=== PATIENT | female | born 1970 | race Caucasian/White ===

== ENCOUNTER → 2021-04-30 | Day surgery (SDC) | payer MEDICAID ==
[~2021-04-30] VITALS: Ht 160 cm; Wt 91.6 kg
[~2021-04-30] MED LIST: BALANCED SALT IRRIG SOLN 15ML ONE; BUPIVACAINE HCL/PF 0.75% (7.5MG/ML) 10ML ONE; CALC-1042 PO; CIPROFLOXACIN 0.3% OPHTH SOLN 2.5ML ONE; HYALURONATE SODIUM 10 MG/ML 0.55ML SYRINGE IO ONE; HYDR200T35 PO; LACTATED RINGERS 1,000 ML IV ONE; LEVO150T8 PO; LIDOCAINE HCL 2%/EPINEPHRINE 1:100,000 20 ML VIAL INFIL ONE; LIDOCAINE HCL/PF 2% 20 MG/ML 10ML VIAL ONE; NEO/POLYMYX B SULF/DEXAMETH OPHTH OINT 3.5GM ONE; OXYB5TAB17 PO; PREDNISOLONE ACETATE 1% OPHTH DROPS 5ML ONE; TETRACAINE 0.5% OPHTH DROPS 4ML ONE; TRIAMCINOLONE ACETONIDE 40MG/ML 1ML VIAL ONE
[2021-04-30 08:58] LABS: UCG SCREEN NEGATIVE
== END | disposition home or self-care (01) ==
LOC: OR 08:10
PROVIDERS: ATTEND Ophthalmology
DX: H11.001 Unspecified pterygium of right eye (principal); Z79.899 Other long term (current) drug therapy; Z98.890 Other specified postprocedural states; Z20.822 Contact with and (suspected) exposure to COVID-19
CPT/HCPCS: 65426; 81025; 87426; J3301; J3490